=== PATIENT | male | born 1955 | race African-American/Black ===

== ENCOUNTER 2017-04-14 15:46 | Inpatient (IN) | payer OTHER ==
[~2017-04-14] VITALS: Ht 170.2 cm; Wt 90.7 kg
[2017-04-14 17:50] LABS: CALCIUM 9.1 mg/dL (8.5-10.1); CARBON DIOXIDE 27.5 mmol/L (21-32); CREATININE SERUM 2.6 mg/dL (0.7-1.3); POTASSIUM SERUM 3.8 mmol/L (3.5-5.1)
[2017-04-14 17:54] LABS: PLATELET COUNT 169 x10^3mcL (130-400)
[2017-04-14 17:55] LABS: BILIRUBIN TOTAL 1.09 mg/dL (0.20-1.00); TOTAL PROTEIN, SERUM 7.7 g/dL (6.4-8.2)
[2017-04-14 17:57] LABS: RED CELL DISTRIBUTION WIDTH 15.6 % (11.5-14.5)
[2017-04-14 18:07] LABS: ALBUMIN 3.3 g/dL (3.4-5.0)
[2017-04-14] MEDS ORDERED: LIPITOR40 MG PO (19:20)
[2017-04-14] MEDS ORDERED: ASPIR 8181 MG PO (19:20)
[2017-04-14] MEDS ORDERED: CLOPIDOGREL75 M1 PO (19:20)
[2017-04-14] MEDS ORDERED: FUROSEMIDE40 MG PO (19:21)
[2017-04-14] MEDS ORDERED: ISOSORBIDE MONO30 MG PO (19:22)
[2017-04-14] MEDS ORDERED: HYDRALAZINE HCL25 MG PO (19:22)
[2017-04-14] MEDS ORDERED: CARVEDILOL3.125 M1 PO (19:23)
[2017-04-14] MEDS ORDERED: NOVOLIN R100 U/ML IV (19:24)
[2017-04-14 21:10] LABS: CHOLESTEROL/HDL RATIO 3.2; MAGNESIUM 2.1 mg/dL (1.8-2.4); PHOSPHOROUS 3.6 mg/dL (2.5-4.9)
[2017-04-14 21:16] LABS: T3 TOTAL 0.74 ng/mL
[2017-04-14 21:20] LABS: FREE T4 0.92 ng/dL (0.76-1.46); FREE THYROXINE INDEX 2.5 ug/dL (1.4-4.5); T4(THYROXINE) 6.7 ug/dL (4.7-13.3)
[2017-04-14 21:58] VITALS: BP 117/90
[2017-04-15] VITALS (7 sets, daily range): BP systolic 103–118; BP diastolic 67–90
[2017-04-15 04:43] LABS: PLATELET COUNT 185 x10^3mcL (130-400)
[2017-04-15 04:45] LABS: BASOPHIL % 3.1 % (0-2); CALCIUM 8.5 mg/dL (8.5-10.1); CARBON DIOXIDE 24.4 mmol/L (21-32); CREATININE SERUM 2.4 mg/dL (0.7-1.3); POTASSIUM SERUM 3.4 mmol/L (3.5-5.1); RED CELL DISTRIBUTION WIDTH 14.8 % (11.5-14.5)
[2017-04-15 10:17] LABS: microscopic required? YES; urine erythrocyte TRACE (NEGATIVE)
[2017-04-15 11:05] LABS: AMPHETAMINE QUAL UR NONE DETECTED (NEG <=1000)
[2017-04-16 07:27] VITALS: BP 100/54
[2017-04-16 09:07] VITALS: BP 100/54
[2017-04-16 09:15] VITALS: BP 91/42
[2017-04-16 10:30] VITALS: BP 97/65
[2017-04-16 13:42] VITALS: BP 114/82
[2017-04-16] MEDS ORDERED: CLOPIDOGREL75 M1 PO (13:44)
[2017-04-16] MEDS ORDERED: ATORVASTATIN CA40 M1 PO (13:44)
[2017-04-16] MEDS ORDERED: COR3 PO (13:45)
[2017-04-16] MEDS ORDERED: APR10 PO (14:01)
[2017-04-16] MEDS ORDERED: ISO10 PO (14:01)
[2017-04-16] MEDS ORDERED: ECO81 PO (14:04)
== END 2017-04-16 15:13 | disposition home or self-care (01) | DRG 198 ==
LOC: ED 15:46 → DU 19:03
PROVIDERS: Emergency Medicine; ADMIT Family Medicine
DX: I25.5 Ischemic cardiomyopathy (principal); N17.0 Acute kidney failure with tubular necrosis; I50.43 Acute on chronic combined systolic (congestive) and diastolic (congestive) heart failure; D68.69 Other thrombophilia; E11.22 Type 2 diabetes mellitus with diabetic chronic kidney disease; E11.65 Type 2 diabetes mellitus with hyperglycemia; N18.3 Chronic kidney disease, stage 3 (moderate); E87.8 Other disorders of electrolyte and fluid balance, not elsewhere classified; I13.0 Hypertensive heart and chronic kidney disease with heart failure and stage 1 through stage 4 chronic kidney disease, or unspecified chronic kidney disease; E44.1 Mild protein-calorie malnutrition; G47.33 Obstructive sleep apnea (adult) (pediatric); E66.9 Obesity, unspecified; I25.10 Atherosclerotic heart disease of native coronary artery without angina pectoris; E87.6 Hypokalemia; Z79.82 Long term (current) use of aspirin; Z79.4 Long term (current) use of insulin; Z68.31 Body mass index [BMI] 31.0-31.9, adult; I25.2 Old myocardial infarction; Z94.0 Kidney transplant status; Z95.5 Presence of coronary angioplasty implant and graft; Z79.02 Long term (current) use of antithrombotics/antiplatelets; Z79.899 Other long term (current) drug therapy
CPT/HCPCS: 82962; 83880; 84439; J1644; J1940; J3490; J7030; Q0092

== ENCOUNTER 2017-04-29 20:21 | Inpatient (IN) | payer OTHER ==
[~2017-04-29] VITALS: Ht 170.2 cm; Wt 85.0 kg
[~2017-04-29 20:21] MED LIST: APR10 PO; ASPIR 8181 MG PO; ATORVASTATIN CA40 M1 PO; CARVEDILOL3.125 M1 PO; CLOPIDOGREL75 M1 PO; COR3 PO; ECO81 PO; FUROSEMIDE40 MG PO; HYDRALAZINE HCL25 MG PO; ISO10 PO; ISOSORBIDE MONO30 MG PO; LIPITOR40 MG PO; NOVOLIN R100 U/ML IV
[2017-04-29 21:26] LABS: PLATELET COUNT 182 x10^3mcL (130-400)
[2017-04-29 21:37] LABS: CALCIUM 8.9 mg/dL (8.5-10.1); CARBON DIOXIDE 23.8 mmol/L (21-32); POTASSIUM SERUM 5.1 mmol/L (3.5-5.1)
[2017-04-29 21:38] LABS: RED CELL DISTRIBUTION WIDTH 16.3 % (11.5-14.5)
[2017-04-29 21:41] LABS: BILIRUBIN TOTAL 1.42 mg/dL (0.20-1.00); TOTAL PROTEIN, SERUM 7.6 g/dL (6.4-8.2)
[2017-04-29 21:55] LABS: ALBUMIN 3.1 g/dL (3.4-5.0); MONOCYTE 12 % (0-7); SEGMENTED NEUTROPHILS 55 % (37-75); rbc morphology (normal/abnorm) NORMAL (NORMAL)
[2017-04-30 00:07] LABS: microscopic required? YES; urine erythrocyte 1+ (NEGATIVE)
[2017-04-30] MEDS ORDERED: GOOD SENSE OMEP20 MG PO (00:42)
[2017-04-30] MEDS ORDERED: NOVOLIN 70/3010 ML SQ (00:43)
[2017-04-30 01:16] LABS: T3 TOTAL 0.7 ng/mL
[2017-04-30 01:18] VITALS: BP 139/93
[2017-04-30 01:19] LABS: FREE T4 1.05 ng/dL (0.76-1.46); FREE THYROXINE INDEX 2.7 ug/dL (1.4-4.5); T4(THYROXINE) 7.2 ug/dL (4.7-13.3)
[2017-04-30 06:02] LABS: AMPHETAMINE QUAL UR NONE DETECTED (NEG <=1000)
[2017-04-30 06:25] LABS: BASOPHIL % 0.3 % (0-2); PLATELET COUNT 154 x10^3mcL (130-400)
[2017-04-30 06:47] LABS: CALCIUM 8.6 mg/dL (8.5-10.1); CARBON DIOXIDE 24.7 mmol/L (21-32); CREATININE SERUM 2.8 mg/dL (0.7-1.3)
[2017-04-30 06:55] VITALS: BP 130/93
[2017-04-30 07:23] LABS: RED CELL DISTRIBUTION WIDTH 16.2 % (11.5-14.5)
[2017-04-30 09:55] VITALS: BP 110/74
[2017-04-30 13:42] VITALS: BP 124/85
[2017-04-30 18:12] VITALS: BP 107/77
[2017-04-30 21:26] VITALS: BP 107/82
[2017-05-01 06:16] VITALS: BP 125/89
[2017-05-01 06:16] LABS: BASOPHIL % 0.5 % (0-2); PLATELET COUNT 157 x10^3mcL (130-400)
[2017-05-01 06:19] LABS: CALCIUM 8.7 mg/dL (8.5-10.1); CARBON DIOXIDE 29.5 mmol/L (21-32); CREATININE SERUM 2.8 mg/dL (0.7-1.3); MAGNESIUM 1.7 mg/dL (1.8-2.4); POTASSIUM SERUM 3.8 mmol/L (3.5-5.1)
[2017-05-01 06:40] LABS: RED CELL DISTRIBUTION WIDTH 15.9 % (11.5-14.5)
[2017-05-01 08:53] VITALS: BP 119/74
[2017-05-01 13:19] VITALS: BP 111/79
[2017-05-01 17:00] VITALS: BP 101/66
[2017-05-01 21:35] VITALS: BP 110/81
[2017-05-02 06:07] VITALS: BP 106/72
[2017-05-02 07:11] LABS: BASOPHIL % 0.3 % (0-2); PLATELET COUNT 164 x10^3mcL (130-400)
[2017-05-02 07:15] LABS: RED CELL DISTRIBUTION WIDTH 15.5 % (11.5-14.5)
[2017-05-02 07:34] LABS: CALCIUM 8.2 mg/dL (8.5-10.1); CARBON DIOXIDE 29.7 mmol/L (21-32); CREATININE SERUM 2.5 mg/dL (0.7-1.3); MAGNESIUM 1.7 mg/dL (1.8-2.4); POTASSIUM SERUM 3.5 mmol/L (3.5-5.1)
[2017-05-02 09:08] VITALS: BP 106/74
[2017-05-02 14:03] VITALS: BP 91/62
[2017-05-02 18:23] VITALS: BP 99/62
[2017-05-02 20:47] VITALS: BP 97/72
[2017-05-03 05:25] VITALS: BP 106/80
[2017-05-03 07:02] LABS: BASOPHIL % 0.4 % (0-2); PLATELET COUNT 173 x10^3mcL (130-400)
[2017-05-03 07:07] LABS: RED CELL DISTRIBUTION WIDTH 15.8 % (11.5-14.5)
[2017-05-03 07:21] LABS: BILIRUBIN TOTAL 0.6 mg/dL (0.20-1.00); CALCIUM 8.5 mg/dL (8.5-10.1); CARBON DIOXIDE 30.6 mmol/L (21-32); CREATININE SERUM 2.4 mg/dL (0.7-1.3); POTASSIUM SERUM 3.6 mmol/L (3.5-5.1); TOTAL PROTEIN, SERUM 6.6 g/dL (6.4-8.2)
[2017-05-03 07:32] LABS: MAGNESIUM 1.9 mg/dL (1.8-2.4); PHOSPHOROUS 3.7 mg/dL (2.5-4.9)
[2017-05-03 07:45] LABS: ALBUMIN 2.6 g/dL (3.4-5.0)
[2017-05-03 09:31] VITALS: BP 105/78
[2017-05-03] MEDS ORDERED: COUMADIN5 MG PO (12:32)
[2017-05-03] MEDS ORDERED: LASIX40 MG PO (12:35)
[2017-05-03] MEDS ORDERED: GLU5 PO (12:47)
[2017-05-03 13:28] VITALS: BP 105/78
== END 2017-05-03 16:14 | disposition home or self-care (01) | DRG 194 ==
LOC: ED 20:21 → DU 04-30 00:05
PROVIDERS: Emergency Medicine; Family Medicine; Family Medicine Sports Medicine; ADMIT Family Medicine
DX: I13.0 Hypertensive heart and chronic kidney disease with heart failure and stage 1 through stage 4 chronic kidney disease, or unspecified chronic kidney disease (principal); N17.0 Acute kidney failure with tubular necrosis; E11.43 Type 2 diabetes mellitus with diabetic autonomic (poly)neuropathy; K31.84 Gastroparesis; E44.0 Moderate protein-calorie malnutrition; D68.69 Other thrombophilia; E11.22 Type 2 diabetes mellitus with diabetic chronic kidney disease; E11.65 Type 2 diabetes mellitus with hyperglycemia; I50.43 Acute on chronic combined systolic (congestive) and diastolic (congestive) heart failure; G47.33 Obstructive sleep apnea (adult) (pediatric); R74.0 Nonspecific elevation of levels of transaminase and lactic acid dehydrogenase [LDH]; I25.10 Atherosclerotic heart disease of native coronary artery without angina pectoris; K76.0 Fatty (change of) liver, not elsewhere classified; Z79.4 Long term (current) use of insulin; Z79.82 Long term (current) use of aspirin; Z68.30 Body mass index [BMI] 30.0-30.9, adult; Z95.5 Presence of coronary angioplasty implant and graft; N18.9 Chronic kidney disease, unspecified; R31.9 Hematuria, unspecified; I42.0 Dilated cardiomyopathy; Z68.29 Body mass index [BMI] 29.0-29.9, adult; E66.9 Obesity, unspecified
CPT/HCPCS: 82962; 83880; 84439; J1200; J1644; J1815; J1940; J2060; J2765; J7030; Q0092

== ENCOUNTER 2017-08-07 17:13 | Inpatient (IN) | payer OTHER ==
[~2017-08-07] VITALS: Ht 175.3 cm; Wt 88.2 kg
[~2017-08-07 17:13] MED LIST changes: +COUMADIN5 MG PO; +GLU5 PO; +GOOD SENSE OMEP20 MG PO; +LASIX40 MG PO; +NOVOLIN 70/3010 ML SQ
[2017-08-07 18:06] LABS: BASOPHIL % 0.6 % (0-2); PLATELET COUNT 140 x10^3mcL (130-400)
[2017-08-07 18:10] LABS: RED CELL DISTRIBUTION WIDTH 17.6 % (11.5-14.5)
[2017-08-07 18:13] LABS: CALCIUM 8.4 mg/dL (8.5-10.1); CREATININE SERUM 2.8 mg/dL (0.7-1.3); POTASSIUM SERUM 3.7 mmol/L (3.5-5.1)
[2017-08-07 18:17] LABS: BILIRUBIN TOTAL 1.08 mg/dL (0.20-1.00); TOTAL PROTEIN, SERUM 6.4 g/dL (6.4-8.2)
[2017-08-07 18:27] LABS: ALBUMIN 2.5 g/dL (3.4-5.0)
[2017-08-07] MEDS ORDERED: CARVEDILOL6.25 M1 PO (19:46)
[2017-08-07] MEDS ORDERED: [UNRECOGNIZED DRUG - OTHER] (19:47)
[2017-08-07 19:59] LABS: microscopic required? NO
[2017-08-07 20:23] LABS: urine erythrocyte NEGATIVE (NEGATIVE)
[2017-08-07 21:05] LABS: AMPHETAMINE QUAL UR NONE DETECTED (NEG <=1000)
[2017-08-07 21:11] LABS: MAGNESIUM 1.8 mg/dL (1.8-2.4); PHOSPHOROUS 3.7 mg/dL (2.5-4.9)
[2017-08-07 21:13] LABS: CHOLESTEROL/HDL RATIO 3.2
[2017-08-07 21:15] LABS: T3 TOTAL 0.73 ng/mL
[2017-08-07 21:23] LABS: FREE T4 1.06 ng/dL (0.76-1.46); FREE THYROXINE INDEX 2.1 ug/dL (1.4-4.5); T4(THYROXINE) 5.5 ug/dL (4.7-13.3)
[2017-08-07 21:43] VITALS: BP 121/86
[2017-08-07 22:30] VITALS: BP 119/88
[2017-08-08 05:27] VITALS: BP 112/82
[2017-08-08 05:34] LABS: BASOPHIL % 0.3 % (0-2); PLATELET COUNT 152 x10^3mcL (130-400)
[2017-08-08 05:41] LABS: RED CELL DISTRIBUTION WIDTH 18.4 % (11.5-14.5)
[2017-08-08 05:46] LABS: CALCIUM 8.3 mg/dL (8.5-10.1); CARBON DIOXIDE 22.7 mmol/L (21-32); CREATININE SERUM 2.7 mg/dL (0.7-1.3); MAGNESIUM 1.8 mg/dL (1.8-2.4); PHOSPHOROUS 3.4 mg/dL (2.5-4.9); POTASSIUM SERUM 3.4 mmol/L (3.5-5.1)
[2017-08-08 10:17] VITALS: BP 126/83
[2017-08-08 11:04] VITALS: Ht 175.3 cm; Wt 88.2 kg
[2017-08-08 12:56] VITALS: BP 110/81
[2017-08-08 17:15] VITALS: BP 115/85
[2017-08-08 20:54] VITALS: BP 116/85
[2017-08-09 06:10] VITALS: BP 121/89
[2017-08-09 07:45] LABS: CALCIUM 8.4 mg/dL (8.5-10.1); CARBON DIOXIDE 25.5 mmol/L (21-32); CREATININE SERUM 2.7 mg/dL (0.7-1.3); POTASSIUM SERUM 3.8 mmol/L (3.5-5.1)
[2017-08-09 07:46] LABS: BASOPHIL % 0.2 % (0-2); PLATELET COUNT 155 x10^3mcL (130-400)
[2017-08-09 07:53] LABS: RED CELL DISTRIBUTION WIDTH 18.3 % (11.5-14.5)
[2017-08-09 09:15] VITALS: BP 102/67
[2017-08-09 14:55] VITALS: BP 105/73
[2017-08-09 17:01] VITALS: BP 100/73
[2017-08-09 21:06] VITALS: BP 108/75
[2017-08-10 05:15] VITALS: BP 117/83
[2017-08-10 05:17] VITALS: BP 117/83
[2017-08-10 08:04] LABS: CARBON DIOXIDE 25.7 mmol/L (21-32); CREATININE SERUM 2.5 mg/dL (0.7-1.3); POTASSIUM SERUM 3.4 mmol/L (3.5-5.1)
[2017-08-10 09:06] VITALS: BP 116/83
[2017-08-10 12:26] VITALS: BP 108/78
[2017-08-10 17:01] VITALS: BP 105/80
[2017-08-10 21:11] VITALS: BP 110/78
[2017-08-11 06:15] VITALS: BP 93/63
[2017-08-11 06:41] LABS: CALCIUM 8.2 mg/dL (8.5-10.1); CARBON DIOXIDE 24.6 mmol/L (21-32); CREATININE SERUM 2.3 mg/dL (0.7-1.3); MAGNESIUM 1.7 mg/dL (1.8-2.4); PHOSPHOROUS 2.9 mg/dL (2.5-4.9); POTASSIUM SERUM 3.2 mmol/L (3.5-5.1)
[2017-08-11 07:25] LABS: BASOPHIL % 0.2 % (0-2); PLATELET COUNT 169 x10^3mcL (130-400); RED CELL DISTRIBUTION WIDTH 17.8 % (11.5-14.5)
[2017-08-11 09:21] VITALS: BP 111/74
[2017-08-11] MEDS ORDERED: KLOR-CON M2020 MEQ PO (10:14)
[2017-08-11 10:20] VITALS: BP 111/74
[2017-08-11] MEDS ORDERED: GABAPENTIN100 M2 PO (10:37)
[2017-08-11 12:46] VITALS: BP 96/69
== END 2017-08-11 14:52 | disposition home or self-care (01) | DRG 194 ==
LOC: ED 17:13 → DU 20:26
PROVIDERS: Emergency Medicine; Family Medicine
DX: I13.0 Hypertensive heart and chronic kidney disease with heart failure and stage 1 through stage 4 chronic kidney disease, or unspecified chronic kidney disease (principal); N17.0 Acute kidney failure with tubular necrosis; E43 Unspecified severe protein-calorie malnutrition; E11.22 Type 2 diabetes mellitus with diabetic chronic kidney disease; E11.65 Type 2 diabetes mellitus with hyperglycemia; I50.43 Acute on chronic combined systolic (congestive) and diastolic (congestive) heart failure; E11.51 Type 2 diabetes mellitus with diabetic peripheral angiopathy without gangrene; E11.42 Type 2 diabetes mellitus with diabetic polyneuropathy; E87.6 Hypokalemia; E78.5 Hyperlipidemia, unspecified; I25.10 Atherosclerotic heart disease of native coronary artery without angina pectoris; G47.33 Obstructive sleep apnea (adult) (pediatric); E66.9 Obesity, unspecified; N18.4 Chronic kidney disease, stage 4 (severe); Z95.5 Presence of coronary angioplasty implant and graft; Z79.4 Long term (current) use of insulin; Z79.82 Long term (current) use of aspirin; Z68.30 Body mass index [BMI] 30.0-30.9, adult; Z83.3 Family history of diabetes mellitus; Z82.49 Family history of ischemic heart disease and other diseases of the circulatory system
CPT/HCPCS: 82962; 83880; 84439; J0690; J1644; J1815; J1940; J7030; Q0092